=== PATIENT | male | born 1955 | race Caucasian/White ===

== ENCOUNTER 2017-04-15 05:53 | Day surgery (SDC) | payer BC, OTHER ==
[2017-04-15] MEDS ORDERED: LACTATED RINGERS 1,000 ML ONE (06:11)
[2017-04-15] MEDS ORDERED: fentaNYL CITRATE INJ 50 MCG/ML AMP ONE (07:00)
[2017-04-15] MEDS ORDERED: PROPOFOL 200 MG/20 ML VIAL IV ONE (07:00)
[2017-04-15] MEDS ORDERED: MIDAZOLAM INJ 5 MG/5 ML VIAL ONE (07:00)
[2017-04-15] MEDS ORDERED: LIDOCAINE 1% 10 ML VIAL INJ ONE (07:00)
--- NOTE | 2017-04-15 08:52 | OP ---
DATE OF PROCEDURE: 04/15/17 PREOPERATIVE DIAGNOSIS: 1. Colon cancer screen. POSTOPERATIVE DIAGNOSIS: 1. Polyp at 25 cm, in the distal sigmoid colon. PROCEDURE: 1. Colonoscopy. SURGEON: Rodrigue Kirby MD. ANESTHESIA: MAC by Lux So CRNA. ESTIMATED BLOOD LOSS: Less than 2 mL. COMPLICATIONS: None apparent. TECHNIQUE: After informed consent was obtained from the patient, the patient was taken to the Endoscopy Suite and put in the left lateral decubitus position. After adequate IV sedation was obtained, a digital rectal exam was performed. The patient was noted to have external hemorrhoids, sphincter tone was decreased, no intraluminal masses were palpated and the prostate is smooth, 1+ and anodular. The colonoscope was then passed with good visualization all the way through the colon. The cecum was identified by the presence of ileocecal valve and appendiceal orifice. The bowel prep was good. There was a small amount of liquid stool that we had to suction clear. The scope was then withdrawn slowly over the next 10 to 12 minutes and a good look at the entire colonic mucosa was obtained. A single sessile polyp was found at 25 cm. This was removed with the cold biopsy forceps very easily. There was good hemostasis after the biopsy was completed. The scope was removed. The patient tolerated the procedure well. The patient was transported to the outpatient area in good condition. He will followup with me in two weeks. I have recommended a high fiber diet. #[id number] [facility]
[2017-04-15 09:25] VITALS: BP 116/64; TEMP 97; O2SAT 97
== END 2017-04-15 09:10 | disposition home or self-care (01) ==
LOC: AMB 05:53
PROVIDERS: ATTEND Family Medicine
DX: Z12.11 Encounter for screening for malignant neoplasm of colon (principal); D12.5 Benign neoplasm of sigmoid colon; I10 Essential (primary) hypertension; E78.00 Pure hypercholesterolemia, unspecified; I25.10 Atherosclerotic heart disease of native coronary artery without angina pectoris; Z79.899 Other long term (current) drug therapy
CPT/HCPCS: 00810; 36416; 45380; 82948; J2250; J3010; J3490; J7120

== ENCOUNTER → 2019-06-05 | Outpatient (CLI) | payer MEDICARE | LOC: GMAE 10:48 | PROVIDERS: ATTEND Family Medicine | DX: I10 Essential (primary) hypertension (principal); Z12.5 Encounter for screening for malignant neoplasm of prostate; E11.9 Type 2 diabetes mellitus without complications; E78.2 Mixed hyperlipidemia | CPT/HCPCS: 84443; G0103 ==